=== PATIENT | male | born 1940 | race Caucasian/White ===

== ENCOUNTER → 2018-07-30 | Outpatient (CLI) | payer MEDICARE, BC | LOC: RAD 08:29 | DX: E04.2 Nontoxic multinodular goiter (principal); R22.1 Localized swelling, mass and lump, neck ==

== ENCOUNTER → 2021-12-10 | Outpatient (CLI) | payer MEDICARE, BC | LOC: RAD 09:50 | DX: D18.09 Hemangioma of other sites (principal); M43.16 Spondylolisthesis, lumbar region; M48.061 Spinal stenosis, lumbar region without neurogenic claudication ==

== ENCOUNTER 2021-12-26 14:51 | Outpatient (RCR) | payer MEDICARE, BC | END 2022-01-20 | disposition home or self-care (01) | LOC: PT | DX: M54.42 Lumbago with sciatica, left side (principal) ==

== ENCOUNTER → 2022-07-10 | Outpatient (CLI) | payer MEDICARE, BC | LOC: RAD 09:02 | DX: M17.12 Unilateral primary osteoarthritis, left knee (principal) ==

== ENCOUNTER 2024-09-06 12:59 | Emergency (ER) | payer MEDICARE ==
[2024-09-06] MEDS ORDERED: LEVOTHYROXINE0.15 MG PO (13:14)
[2024-09-06] MEDS ORDERED: DIGOXIN250 MCG PO (13:14)
[2024-09-06] MEDS ORDERED: HCTZ 25MG25 MG PO (13:14)
[2024-09-06] MEDS ORDERED: NORVASC 10MG10 MG PO (13:15)
[2024-09-06] MEDS ORDERED: LOSARTAN POTAS100 MG PO (13:15)
[2024-09-06] MEDS ORDERED: NS 1,000 ML IV SCH (13:45)
[2024-09-06] MEDS ORDERED: Ondansetron 4 MG/2 ML VIAL IV ONE (13:45)
[2024-09-06 13:52] LABS: BASO # 0.03 K/mm3 (0.02-0.10); HEMATOCRIT 45.2 % (42.0-52.0); HEMOGLOBIN 14.9 g/dL (13.5-18.0); LYMPH# 0.76 K/mm3 (1.50-4.00); MEAN CELL VOLUME 86 fl (78-100); MEAN CORPUSCULAR HEMOGLOBIN 28 pg (27-31); MEAN CORPUSCULAR HGB CONC 33 g/dL (33-37); MEAN PLATELET VOLUME 9.4 fl (7.4-10.4); MONO # 0.77 K/mm3 (0.20-0.80); NEU # 7.98 K/mm3 (1.40-6.50); PLATELET COUNT 483 K/mm3 (130-400); RED BLOOD COUNT 5.26 M/mm3 (4.20-5.60); RED CELL DISTRIBUTION WIDTH 14.9 % (11.5-14.5); WHITE BLOOD COUNT 9.6 K/mm3 (4.8-10.8)
[2024-09-06 13:59] LABS: CALCIUM 9.4 mg/dL (8.3-10.5)
[2024-09-06 14:00] VITALS: BP 133/80
[2024-09-06 14:02] LABS: TOTAL BILIRUBIN 0.6 mg/dL (0.2-1.2)
[2024-09-06] MEDS ORDERED: ZOFRAN ODT4 MG PO (14:18)
== END 2024-09-06 15:00 | disposition home or self-care (01) ==
LOC: ED 12:59
PROVIDERS: Physician Assistant
DX: R11.2 Nausea with vomiting, unspecified (principal); R19.7 Diarrhea, unspecified; E87.6 Hypokalemia
CPT/HCPCS: J2405; J7030